=== PATIENT | male | born 1995 | race Caucasian/White ===

== ENCOUNTER 2023-05-27 02:07 | Emergency (ER) | payer SELFPAY ==
[2023-05-27] MEDS ORDERED: Ibuprofen 800 MG Tab PO ONE (02:34)
[2023-05-27] MEDS ORDERED: Diphtheria/Tetanus Toxoids,Adult (Td) 0.5 ML Syringe IM ONE (02:35)
[2023-05-27] MEDS ORDERED: Lidocaine/Epineph/Tetracaine 3 ML Syringe TOP ONE (02:36)
[2023-05-27] MEDS ORDERED: Bacitracin Oint 1 GM U/D Packet TOP ONE (04:10)
== END 2023-05-27 04:30 | disposition home or self-care (01) ==
LOC: MW.ED 02:07
DX: S51.812A Laceration without foreign body of left forearm, initial encounter (principal); Z23 Encounter for immunization; Z88.7 Allergy status to serum and vaccine; W20.8XXA Other cause of strike by thrown, projected or falling object, initial encounter
CPT/HCPCS: 12001; 73090; 90471; 90714; 99283; A9270

== ENCOUNTER 2023-05-27 20:59 | Emergency (ER) | payer SELFPAY ==
[2023-05-27] MEDS ORDERED: Acetaminophen/HYDROcodone 325-5 MG Tab PO ONE (22:20)
== END 2023-05-27 22:39 | disposition home or self-care (01) ==
LOC: MW.ED 20:59
DX: M79.632 Pain in left forearm (principal); Z88.7 Allergy status to serum and vaccine
CPT/HCPCS: 99283; A9270

== ENCOUNTER 2023-09-09 10:10 | Emergency (ER) | payer SELFPAY ==
[2023-09-09] MEDS: Lidocaine 1% with EPINEPHrine 1:100,000 10 ML MDV INJECT ONE (10:53)
[2023-09-09] MEDS: Lidocaine 1% with EPINEPHrine 1:200,000 30 ML SDV INFILT ONE (10:55)
== END 2023-09-09 11:26 ==
LOC: MW.ED 10:10
DX: K61.0 Anal abscess (principal); Z88.7 Allergy status to serum and vaccine; Z90.49 Acquired absence of other specified parts of digestive tract
CPT/HCPCS: 46050; 99283; J3490; 10060

== ENCOUNTER 2023-10-07 12:52 | Day surgery (SDC) | payer SELFPAY ==
[2023-10-07] MEDS: Morphine 4 MG/ML Syringe IM STA (13:48)
[2023-10-07] MEDS: Ondansetron 4 MG Tab.DIS PO STA (13:48)
[2023-10-07] MEDS: Sodium Chloride 0.9% 1,000 ML IV STA ×4 (13:50→16:02)
[2023-10-07 13:51] LABS: BASOPHILS ABSOLUTE AUTO 0.04 K/uL (0.00-0.20); BASOPHILS PERCENT AUTO 0.3 % (0.0-1.0); EOSINOPHILS PERCENT AUTO 0.8 % (0.0-6.0); HEMATOCRIT 43.2 % (42.0-52.0); HEMOGLOBIN 15.4 g/dL (14.0-18.0); IMMATURE GRAN ABSOLUTE AUTO 0.09 K/uL (0.00-0.05); IMMATURE GRAN PERCENT AUTO 0.7 % (0.0-0.4); LYMPHOCYTES ABSOLUTE AUTO 2.08 K/uL (1.00-4.80); LYMPHOCYTES PERCENT AUTO 16.8 % (24.0-44.0); MEAN CORPUSCULAR HEMOGLOBIN 31.4 pg (28.0-32.0); MEAN CORPUSCULAR HGB CONC 35.6 g/dL (32.0-36.0); MEAN CORPUSCULAR VOLUME 88.2 fL (83.0-99.0); MEAN PLATELET VOLUME 10.3 fL (9.4-12.4); MONOCYTES ABSOLUTE AUTO 1.23 K/uL (0.00-0.80); MONOCYTES PERCENT AUTO 9.9 % (0.0-8.0); NEUTROPHILS ABSOLUTE AUTO 8.83 K/uL (1.80-7.70); NEUTROPHILS PERCENT AUTO 71.5 % (41.0-71.0); PLATELET COUNT,PLT 159 K/uL (150-400); WHITE BLOOD CELL COUNT,WBC 12.37 K/uL (3.9-11.3)
[2023-10-07] MEDS: Morphine 4 MG/ML Syringe IVPUSH STA (14:00)
[2023-10-07] MEDS: metroNIDAZOLE 250 MG Tab PO STA (14:00)
[2023-10-07] MEDS: Ondansetron 4 MG/2 ML SDV IVPUSH STA (14:00)
[2023-10-07 14:18] LABS: INR 1.06 (0.86-1.11)
[2023-10-07 14:19] LABS: ALBUMIN 3.7 g/dL (3.4-5.0); BILIRUBIN TOTAL 0.6 mg/dL (0.2-1.0); CALCIUM 8.2 mg/dL (8.5-10.1); CARBON DIOXIDE,CO2 25.9 mmol/L (21.0-32.0); CREATININE 1.2 mg/dL (0.8-1.3); EST CRCL DRUG DOSING (CG) 116.53 mL/min; POTASSIUM,K 3.8 mmol/L (3.5-5.1); PROTEIN TOTAL,TP 7.3 g/dL (6.4-8.2)
[2023-10-07] MEDS: Acetaminophen 500 MG Tab PO STA (14:21)
[2023-10-07] MEDS: VANCOmycin 2 GM/400 ML 2 GM in Premix Bag 1 BAG IV ONE (14:21)
[2023-10-07] MEDS: Levofloxacin 750 MG Tab PO STA (14:22)
[2023-10-07 14:24] LABS: LACTIC ACID 0.9 mmol/L (0.4-2.0)
[2023-10-07 14:33] LABS: APPEARANCE,URINE CLEAR; BILIRUBIN,URINE NEGATIVE (NEGATIVE); COLOR,URINE YELLOW; GLUCOSE,URINE NEGATIVE (NEGATIVE); KETONES,URINE NEGATIVE (NEGATIVE); LEUKOCYTE ESTERASE,URINE NEGATIVE (NEGATIVE); NITRITE,URINE NEGATIVE (NEGATIVE); OCCULT BLOOD,URINE NEGATIVE (NEGATIVE); PROTEIN,URINE NEGATIVE (NEGATIVE); UROBILINOGEN,URINE 0.2 EU/dL (<2.0)
[2023-10-07] MEDS: Iopamidol 755 MG/ML 500 ML Multipack Bottle IVPUSH STA (15:23)
[2023-10-07] MEDS: HYDROmorphone 1 MG/ML Syringe IVPUSH STA ×2 (15:39→17:21)
[2023-10-07] MEDS ORDERED: fentaNYL 100 MCG/2 ML SDV ONE (17:44)
[2023-10-07] MEDS ORDERED: Ketorolac 30 MG/ML SDV ONE (17:44)
[2023-10-07] MEDS ORDERED: Lidocaine 2% 5 ML SDV ONE (17:44)
[2023-10-07] MEDS ORDERED: Ondansetron 4 MG/2 ML SDV ONE (17:44)
[2023-10-07] MEDS ORDERED: Propofol 200 MG/20 ML SDV ONE (17:44)
[2023-10-07] MEDS ORDERED: Lidocaine 1% 20 ML MDV ONE (17:48)
[2023-10-07] MEDS ORDERED: Bupivacaine 0.5% 30 ML SDV ONE (17:48)
[2023-10-07] MEDS ORDERED: cefOXitin 1 GM Vial ONE (18:17)
[2023-10-07] MEDS ORDERED: Ketamine HCL/NACL, ISO-OSM 50 MG/5 ML Syringe ONE (18:25)
[2023-10-07] MEDS ORDERED: Albuterol 0.083% 2.5 MG/3 ML Neb Soln NEB PRN (18:48)
[2023-10-07] MEDS ORDERED: Naloxone 0.4 MG/ML SDV IVPUSH PRN (18:48)
[2023-10-07] MEDS ORDERED: HYDROmorphone 1 MG/ML Syringe IVPUSH PRN (18:48)
[2023-10-07] MEDS ORDERED: Metoclopramide 10 MG/2 ML SDV IVPUSH PRN (18:48)
[2023-10-07] MEDS ORDERED: droPERidol 5 MG/2 ML SDV IVPUSH PRN (18:48)
[2023-10-07] MEDS ORDERED: Ondansetron 4 MG/2 ML SDV IVPUSH PRN (18:48)
[2023-10-07] MEDS: fentaNYL 50 MCG/ML SDV IVPUSH PRN (19:17)
[2023-10-07] MEDS: Morphine 2 MG/ML SYRINGE IVPUSH PRN (19:45)
[2023-10-07] MEDS: Acetaminophen/HYDROcodone 325-10 MG Tab PO ONE (21:44)
== END 2023-10-07 23:37 | disposition home or self-care (01) ==
LOC: MW.ED 12:52 → MW.MS 17:25 → MW.SDS 17:25
PROVIDERS: ATTEND Surgery
DX: K61.0 Anal abscess (principal); K61.4 Intrasphincteric abscess; F17.210 Nicotine dependence, cigarettes, uncomplicated; Z88.7 Allergy status to serum and vaccine; Z79.899 Other long term (current) drug therapy
CPT/HCPCS: 36415; 46050; 74177; 80053; 81003; 83036; 83605; 83690; 85025; 85610; 87040; A9270; J0131; J0665; J0694; J1170; J1885; J2270; J2405; J2704; J3010; J3370; J7030; Q9967; 96361; 96365; 96366; 96375; 99284; 99284-25; J3490

== ENCOUNTER 2024-03-05 06:56 | Emergency (ER) | payer SELFPAY | END 2024-03-05 08:30 | disposition home or self-care (01) | LOC: MW.ED 06:56 | DX: G56.02 Carpal tunnel syndrome, left upper limb (principal); F17.210 Nicotine dependence, cigarettes, uncomplicated; Z90.49 Acquired absence of other specified parts of digestive tract; Z75.8 Other problems related to medical facilities and other health care; Z88.7 Allergy status to serum and vaccine | CPT/HCPCS: 99283 ==

== ENCOUNTER 2024-03-27 08:12 | Emergency (ER) | payer SELFPAY ==
[2024-03-27 08:40] LABS: HEMATOCRIT 48.2 % (42.0-52.0); HEMOGLOBIN 17.4 g/dL (14.0-18.0); MEAN CORPUSCULAR HEMOGLOBIN 31.6 pg (28.0-32.0); MEAN CORPUSCULAR HGB CONC 36.1 g/dL (32.0-36.0); MEAN CORPUSCULAR VOLUME 87.5 fL (83.0-99.0); MEAN PLATELET VOLUME 9.8 fL (9.4-12.4); PLATELET COUNT,PLT 258 K/uL (150-400); RED BLOOD CELL COUNT 5.51 M/uL (4.52-5.90); WHITE BLOOD CELL COUNT,WBC 8.07 K/uL (3.9-11.3)
[2024-03-27] MEDS: Sodium Chloride 0.9% 1,000 ML IV ONE (08:57)
[2024-03-27 09:04] LABS: BAND ABSOLUTE MAN 0.16; BAND PERCENT MAN 2 %; BASOPHILS PERCENT MAN 5 % (0-1); EOSINOPHILS ABSOLUTE MAN 0.16 K/uL (0.00-0.45); EOSINOPHILS PERCENT MAN 2 % (0-6); LYMPHOCYTES ABSOLUTE MAN 2.26 K/uL (1.00-4.80); LYMPHOCYTES PERCENT MAN 28 % (24-44); MONOCYTES ABSOLUTE MAN 0.65 K/uL (0.00-0.80); MONOCYTES PERCENT MAN 8 % (0-8); SEG NEUTROPHILS ABSOLUTE MAN 4.44 K/uL (1.80-7.70); SEG NEUTROPHILS PERCENT MAN 55 % (41-71)
[2024-03-27 09:14] LABS: ALBUMIN 3.7 g/dL (3.4-5.0); BILIRUBIN TOTAL 0.5 mg/dL (0.2-1.0); CALCIUM 8.7 mg/dL (8.5-10.1); CARBON DIOXIDE,CO2 26.2 mmol/L (21.0-32.0); CREATININE 1.1 mg/dL (0.8-1.3); EST CRCL DRUG DOSING (CG) 109.74 mL/min; POTASSIUM,K 3.4 mmol/L (3.5-5.1); PROTEIN TOTAL,TP 7.5 g/dL (6.4-8.2)
[2024-03-27] MEDS: Alum Hydrox/Mag Hydrox/Simeth 15 ML, Lidocaine 2% 5 ML PO ONE (11:02)
[2024-03-27] MEDS: Famotidine 20 MG/2 ML SDV IVPUSH ONE (11:03)
== END 2024-03-27 13:58 | disposition home or self-care (01) ==
LOC: MW.ED 08:12
DX: R07.89 Other chest pain (principal); Z75.8 Other problems related to medical facilities and other health care; Z88.7 Allergy status to serum and vaccine
CPT/HCPCS: 36415; 71045; 80053; 83690; 84484; 85007; 85027; 85379; 93005; 96361; 96374; 99285; A9270; J3490; J7030

== ENCOUNTER 2024-05-19 02:26 | Emergency (ER) | payer SELFPAY | END 2024-05-19 02:54 | disposition home or self-care (01) | LOC: MW.ED 02:26 | DX: I10 Essential (primary) hypertension (principal); F17.210 Nicotine dependence, cigarettes, uncomplicated; Z88.7 Allergy status to serum and vaccine; Z90.49 Acquired absence of other specified parts of digestive tract | CPT/HCPCS: 99283 ==

== ENCOUNTER 2024-11-28 08:02 | Emergency (ER) | payer SELFPAY ==
[2024-11-28 09:23] LABS: BASOPHILS ABSOLUTE AUTO 0.05 K/uL (0.00-0.20); BASOPHILS PERCENT AUTO 0.6 % (0.0-1.0); EOSINOPHILS ABSOLUTE AUTO 0.53 K/uL (0.00-0.45); EOSINOPHILS PERCENT AUTO 6.8 % (0.0-6.0); IMMATURE GRAN ABSOLUTE AUTO 0.03 K/uL (0.00-0.05); IMMATURE GRAN PERCENT AUTO 0.4 % (0.0-0.4); LYMPHOCYTES ABSOLUTE AUTO 1.77 K/uL (1.00-4.80); LYMPHOCYTES PERCENT AUTO 22.9 % (24.0-44.0); MEAN PLATELET VOLUME 10.5 fL (9.4-12.4); MONOCYTES ABSOLUTE AUTO 0.65 K/uL (0.00-0.80); MONOCYTES PERCENT AUTO 8.4 % (0.0-8.0); NEUTROPHILS ABSOLUTE AUTO 4.71 K/uL (1.80-7.70); NEUTROPHILS PERCENT AUTO 60.9 % (41.0-71.0); NRBC ABSOLUTE 0.00 K/uL (0.00-0.02); NRBC PERCENT 0.0 /100WBC (0.0-0.2); PLATELET COUNT,PLT 194 K/uL (150-400); RED BLOOD CELL COUNT 4.69 M/uL (4.52-5.90); WHITE BLOOD CELL COUNT,WBC 7.74 K/uL (3.9-11.3)
[2024-11-28 09:24] LABS: APPEARANCE,URINE CLEAR; GLUCOSE,URINE NEGATIVE (NEGATIVE); OCCULT BLOOD,URINE NEGATIVE (NEGATIVE)
[2024-11-28 09:33] LABS: AMPHETAMINES SCREEN, URINE PRESUMPTIVE POSITIVE (CUTOFF=500); BUPRENORPHINE SCREEN,URINE NEGATIVE (CUTOFF=10); METHADONE SCREEN, URINE NEGATIVE (CUTOFF=200); METHAMPHETAMINES SCREEN, URINE NEGATIVE (CUTOFF=500); OXYCODONE SCREEN,URINE NEGATIVE (CUT0FF=100); PCP SCREEN,URINE NEGATIVE (CUTOFF=25); THC SCREEN,URINE 20 NG/ML PRESUMPTIVE POSITIVE (CUTOFF=50)
[2024-11-28 09:59] LABS: BLOOD UREA NITROGEN,BUN 9.0 mg/dL (7.0-18.0); CARBON DIOXIDE,CO2 27.9 mmol/L (21.0-32.0); CHLORIDE,CL 101.0 mmol/L (98-107); CREATININE 1.1 mg/dL (0.8-1.3); EST CRCL DRUG DOSING (CG) 126.0 mL/min; GLUCOSE RANDOM 82.0 mg/dL (74-106); POTASSIUM,K 3.6 mmol/L (3.5-5.1); SODIUM,NA 138.0 mmol/L (136-148); TSH ULTRASENSITIVE 0.77 uIU/mL (0.36-3.74)
[2024-11-28 10:00] LABS: ESTIMATED GFR 94.0 mL/min (>60)
== END 2024-11-28 10:49 | disposition home or self-care (01) ==
LOC: MW.ED 08:02
DX: F41.9 Anxiety disorder, unspecified (principal); I10 Essential (primary) hypertension; Z88.7 Allergy status to serum and vaccine; Z90.49 Acquired absence of other specified parts of digestive tract
CPT/HCPCS: 36415; 80048; 80305; 81003; 84443; 85025; 99283; A9270

== ENCOUNTER 2025-03-08 21:11 | Emergency (ER) | payer MEDICAID ==
[2025-03-08] MEDS: Propofol 200 MG/20 ML SDV IVPUSH ONE ×2 (22:20→22:34)
[2025-03-08] MEDS: Ondansetron 4 MG/2 ML SDV IVPUSH ONE (22:20)
[2025-03-08] MEDS: Ampicillin/Sulbactam Na 3 GM in Sodium Chloride 0.9% 100 ML IV ONE (22:21)
[2025-03-08] MEDS: Ketamine 500 mg/10 ML MDV IV ONE (22:21)
[2025-03-08 22:25] LABS: BASOPHILS ABSOLUTE AUTO 0.07 K/uL (0.00-0.20); BASOPHILS PERCENT AUTO 0.5 % (0.0-1.0); EOSINOPHILS ABSOLUTE AUTO 0.31 K/uL (0.00-0.45); EOSINOPHILS PERCENT AUTO 2.3 % (0.0-6.0); IMMATURE GRAN ABSOLUTE AUTO 0.04 K/uL (0.00-0.05); IMMATURE GRAN PERCENT AUTO 0.3 % (0.0-0.4); LYMPHOCYTES ABSOLUTE AUTO 2.06 K/uL (1.00-4.80); LYMPHOCYTES PERCENT AUTO 15.2 % (24.0-44.0); MEAN PLATELET VOLUME 10.1 fL (9.4-12.4); MONOCYTES ABSOLUTE AUTO 1.03 K/uL (0.00-0.80); MONOCYTES PERCENT AUTO 7.6 % (0.0-8.0); NEUTROPHILS ABSOLUTE AUTO 10.02 K/uL (1.80-7.70); NEUTROPHILS PERCENT AUTO 74.1 % (41.0-71.0); NRBC ABSOLUTE 0.00 K/uL (0.00-0.02); NRBC PERCENT 0.0 /100WBC (0.0-0.2); PLATELET COUNT,PLT 193 K/uL (150-400); RED BLOOD CELL COUNT 4.99 M/uL (4.52-5.90); WHITE BLOOD CELL COUNT,WBC 13.53 K/uL (3.9-11.3)
[2025-03-08 22:41] LABS: BLOOD UREA NITROGEN,BUN 11.0 mg/dL (7.0-18.0); CARBON DIOXIDE,CO2 31.3 mmol/L (21.0-32.0); CHLORIDE,CL 100.0 mmol/L (98-107); CREATININE 1.1 mg/dL (0.8-1.3); EST CRCL DRUG DOSING (CG) 108.76 mL/min; GLUCOSE RANDOM 67.0 mg/dL (74-106); POTASSIUM,K 4.0 mmol/L (3.5-5.1); SODIUM,NA 138.0 mmol/L (136-148)
[2025-03-08 22:45] LABS: ESTIMATED GFR 93.0 mL/min (>60)
== END 2025-03-08 23:35 | disposition home or self-care (01) ==
LOC: MW.ED 21:11
DX: K61.0 Anal abscess (principal); I10 Essential (primary) hypertension; Z90.49 Acquired absence of other specified parts of digestive tract; Z88.7 Allergy status to serum and vaccine
CPT/HCPCS: 36415; 46050; 80048; 85025; 96374; 96375; 99152; 99283; J0295; J2270; J2405; J2704; J3490; J7030; 10060; 99153; 99284